=== PATIENT | female | born 1980 | race Caucasian/White ===

== ENCOUNTER 2017-02-23 19:09 | Emergency (ER) | payer OTHER ==
[2017-02-23 21:39] LABS: BASOPHIL 0.5 % (0-2); EOSINOPHIL 2.9 % (0-5); HCT 38.1 % (37.0-47.0); HGB 12.3 g/dl (12.5-16.0); LYMPHOCYTE 37.7 % (15-48); MCHC 32.3 g/dL (32.0-36.0); MCV 83.6 fL (78.0-100.0); MONOCYTE 6.9 % (0-12); PLT 296 K/uL (150-400); RBC 4.56 M/uL (4.20-5.40); RDW 15.3 % (11.5-14.0); WBC 7.9 K/uL (4.0-10.5)
[2017-02-23 21:45] LABS: BILIRUBIN NEGATIVE (NEGATIVE); BLOOD 3+ Ery/uL (NEGATIVE); CLARITY CLEAR (CLEAR); COLOR YELLOW (YELLOW); GLUCOSE (U) NORMAL (NORMAL); KETONE (U) NEGATIVE (NEGATIVE); LEUKOCYTES NEGATIVE Leu/uL (NEGATIVE); NITRITE NEGATIVE (NEGATIVE); PROTEIN 1+ mg/dL (NEGATIVE); UROBILINOGEN 0.2 mg/dL (0.2-1.0); pH 6.5 (5.0-9.0)
[2017-02-23 21:47] LABS: SQUAMOUS EPITHELIAL CELLS RARE; URINARY RBC TNTC
[2017-02-23 21:56] LABS: ALBUMIN 3.8 g/dL (3.5-5.0); BILIRUBIN - TOTAL 0.3 mg/dL (0.1-1.0); CREATININE 0.8 mg/dL (0.5-1.0); GLOBULIN (CALCULATION) 2.6 g/dL (2.2-4.2); POTASSIUM 4.2 mmol/L (3.5-5.1); TOTAL PROTEIN 6.4 g/dL (6.4-8.3)
== END 2017-02-23 23:23 | disposition home or self-care (01) ==
LOC: FER 19:09
PROVIDERS: Emergency Medicine Emergency Medical Services
DX: G43.909 Migraine, unspecified, not intractable, without status migrainosus (principal); F31.9 Bipolar disorder, unspecified; F17.210 Nicotine dependence, cigarettes, uncomplicated
CPT/HCPCS: 36415; 80053; 81001; 82150; 83690; 85025; J1170; J2405; J2765; J2930

== ENCOUNTER 2017-04-02 13:23 | Emergency (ER) | payer OTHER | END 2017-04-02 16:06 | disposition left against medical advice (07) | LOC: FER 13:23 | DX: R51 Headache (principal); R11.0 Nausea; Z53.8 Procedure and treatment not carried out for other reasons ==

== ENCOUNTER 2017-04-06 18:53 | Emergency (ER) | payer OTHER | END 2017-04-06 21:00 | disposition home or self-care (01) | LOC: FER 18:53 | DX: G43.909 Migraine, unspecified, not intractable, without status migrainosus (principal); G89.29 Other chronic pain; Z87.09 Personal history of other diseases of the respiratory system | CPT/HCPCS: J1100; J1885; J2765; J2800 ==